=== PATIENT | female | born 2000 | race African-American/Black ===

== ENCOUNTER 2021-06-30 19:54 | Emergency (ER) | payer OTHER, SELFPAY ==
--- NOTE | ~2021-06-30 | CT_ITS ---
EXAMINATION: CT cervical spine wo con DATE: 06/30/2021 20:31 INDICATION: Neck, shoulder and upper back pain and limited range of motion following injury while heriberto ch pressing. TECHNIQUE: Computed tomography (CT) of the cervical spine was performed without intravenous contrast. Automated exposure control and iterative reconstruction technique were employed. The dose-length pro duct was 370.88 mGy-cm. COMPARISON: None FINDINGS: Reversal of the normal cervical lordosis which could be positional or due to muscle spasm. No spondyl olisthesis or facet subluxation. Vertebral body heights are normal. No fracture. Disc heights are nor mal. Cervical facet and uncovertebral joints are normal. Central canal and neural foramina are patent throughout. Cervical soft tissues are unremarkable. Visualized portions of the mastoid air cells, mi ddle ear cavities, airway and apices of lungs are clear. IMPRESSION: 1. Reversal of the normal cervical lordosis which could be positional or due to muscle spasm. Otherwi se unremarkable cervical spine CT. Reviewed, dictated and finalized at location A. ATERIA ATTENDANT IMPRESSION: 1. Reversal of the normal cervical lordosis which could be positional or due to muscle spasm. Otherwise unremarkable cervical spine CT.
--- NOTE | ~2021-06-30 | XR_ITS ---
EXAMINATION: XR thoracic spine 3V DATE: 06/30/2021 20:48 INDICATION: Neck and upper back pain with limited range of motion post injury while bench pressing. TECHNIQUE: One AP, lateral and lateral swimmer's views of the thoracic spine were obtained. COMPARISON: None. FINDINGS: Normal alignment of the thoracic spine. There is reversal of the normal cervical lordosis which could be positional or due to muscle spasm. Vertebral body and disc heights are normal. No fractures ident ified. Visualized portions of the lungs are clear. Cardiomediastinal silhouette is normal. IMPRESSION: 1. Reversal of the normal cervical lordosis which could be positional or due to muscle spasm. Normal thoracic spine. Reviewed, dictated and finalized at location A. [employer]
[2021-06-30 20:02] VITALS: BP 160/90; PULSE 97; RESP 18; TEMP 37; O2SAT 100
[2021-06-30] MEDS: IBUPROFEN 600 MG TABLET PO (20:22)
--- NOTE | 2021-06-30 21:21 | ED.NECK ---
HPI - Neck Pain/Injury General Chief Complaint: Neck Pain/Injury Stated Complaint: neck injury at the gym, immobility Time Seen by Provider: 06/30/21 20:00 Source: RN notes reviewed History of Present Illness HPI Narrative: Patient presents emergency department from home for upper back pain. Patient states approximate 1 hour prior to arrival she is doing a chest press which involves sitting and doing a bench press motion with a machine she states that she felt sudden pain in her upper back and felt something pop she states since that time she had pain in her upper back that is worse with movement of her bilateral arms above her head she denies any direct trauma or anything striking her she denies any chest pain or shortness of breath denies any numbness or weakness of the extremities pain is worse with movement of the neck Related Data Allergies Allergy/AdvReac Type Severity Reaction Status Date / Time No Known Allergies Allergy Verified 06/30/21 20:12 Review of Systems Review of Systems: Gen.: Denies fevers or chills ENT: Denies congestion Respiratory: Denies shortness of breath or cough CV: Denies chest pain or palpitations GI: Denies abdominal pain nausea, emesis or diarrhea denies denies Musculoskeletal: See HPI Neuro: Denies numbness, tingling, weakness or focal weakness Skin: Denies rash Except as documented, all other systems reviewed and negative [facility] Past Medical History Medical History (Updated 06/30/21 @ 21:24 by Roldan Segura DO) Patient denies significant medical history Social History Social History (Updated 06/30/21 @ 21:23 by Roldan Segura DO) Smoking status: Never smoker Exam Narrative: APPEARANCE: No acute distress, nontoxic, resting in bed EYES: EOMI HEENT: Normocephalic, atraumatic, OMM Neck: Supple no midline tenderness palpation pain with rotation of the head bilaterally greater than 35 degrees tender palpation of the bilateral paravertebral muscles C5-7 RESPIRATORY: No respiratory distress Clear to auscultation bilaterally with no rhonchi wheezing or rales. CARDIOVASCULAR: Regular rate and rhythm without murmurs rubs or gallops. ABDOMINAL: Soft, nontender, nondistended, no rebound or guarding MUSCULOSKELETAl: Moves all extremities. No clubbing, cyanosis or edema. Back: No midline thoracic lumbar tenderness palpation tender palpation bilateral paravertebral muscles T1-4 NEURO: Awake and alert. Following commands, speech normal, no focal deficits muscle strength 5 out of 5 in bilateral upper extremities SKIN:: Warm, dry. No rashes lesions or abrasions PSYCHIATRIC: Normal affect/mood, Course Course Emergency Course: Discussed with patient results of workup and diagnosis. Discussed need for follow-up with primary care, proper use of medication, and reasons to return to the emergency department. Patient understands and agrees to current treatment plan Vital Signs Vital signs: Vital Signs Temperature 98.6 F 06/30/21 20:02 Pulse Rate 97 06/30/21 20:02 Respiratory Rate 18 06/30/21 20:02 Blood Pressure 160/90 H 06/30/21 20:02 Pulse Oximetry 100 06/30/21 20:02 Temperature 98.6 F 06/30/21 20:02 Pulse Rate 97 06/30/21 20:02 Respiratory Rate 18 06/30/21 20:02 Blood Pressure 160/90 H 06/30/21 20:02 Pulse Oximetry 100 06/30/21 20:02 MDM - Neck Pain/Injury Imaging Data Radiologist's impression: ITS Impressions Cervical Spine CT 06/30/21 20:48 IMPRESSION: 1. Reversal of the normal cervical lordosis which could be positional or due to muscle spasm. Otherwise unremarkable cervical spine CT. Thoracic Spine X-Ray 06/30/21 20:50 IMPRESSION: 1. Reversal of the normal cervical lordosis which could be positional or due to muscle spasm. Normal thoracic spine. Discharge Plan Discharge Clinical Impression: Upper back strain Patient Disposition: Home, Self-Care Condition: Stable Instructions: Antibiotic Form, Cer
[2021-06-30 21:35] VITALS: BP 124/74; RESP 16; O2SAT 100
== END 2021-06-30 21:40 | disposition home or self-care (01) ==
PROVIDERS: Emergency Provider Emergency Medicine
DX: S29.012A Strain of muscle and tendon of back wall of thorax, initial encounter (principal); X50.0XXA Overexertion from strenuous movement or load, initial encounter; Y93.B1 Activity, exercise machines primarily for muscle strengthening
CPT/HCPCS: 72072; 72125; 99284; A9270